=== PATIENT | male | born 1965 | race Caucasian/White ===

== ENCOUNTER 2021-01-28 14:13 | Inpatient (IN) | payer SELFPAY ==
[2021-01-28] VITALS (13 sets, daily range): BP systolic 113–137; BP diastolic 63–87; PULSE 76–96; RESP 16–20; TEMP 36.1–37.1; O2SAT 97–100; BMI 29.7
--- NOTE | ~2021-01-28 | XR_ITS ---
EXAMINATION: XR CHEST CLINICAL INFORMATION: Chest pain. COMPARISON: None TECHNIQUE: Frontal view of the chest was obtained. FINDINGS: No significant abnormality is noted involving the heart, lungs, mediastinum, bony thorax or soft tissues. XR/XR chest 1V IMPRESSION: No acute cardiopulmonary process.
--- NOTE | 2021-01-28 14:27 | ECG_ITS ---
Test Reason : CHEST PAIN Blood Pressure : / mmHG Vent. Rate : 094 BPM Atrial Rate : 094 BPM P-R Int : 174 ms QRS Dur : 084 ms QT Int : 358 ms P-R-T Axes : 051 055 -61 degrees QTc Int : 447 ms Normal sinus rhythm Minimal voltage criteria for LVH, may be normal variant T wave abnormality, consider inferolateral ischemia Abnormal ECG No previous ECGs available Referred By: Arcelia Humphrey Electronically Signed By:Migue Sahu
--- NOTE | 2021-01-28 14:38 | PC.NURSE ---
EKG obtained. Second IV inserted. Blood obtained and sent to lab per [facility] protocol. Awaigint CXR and MD mcgill. VSS at thist time. Pt placed on 2liters o2 NC for cmfort.
[2021-01-28 14:42] LABS: MANUAL DIFF FLAG NO
[2021-01-28 14:43] LABS: Basophils Percent Auto 0.4 % (0-2); Eosinophils Absolute Auto 0.5 X10*3/uL (0.0-0.4); Eosinophils Percent Auto 11.7 % (0-4); Imm Gran Abs Auto 0.01 X10*3/uL (0.00-0.03); Imm Gran Pct Auto 0.2 % (0.0-0.4); Lymphocytes Absolute Auto 1.8 X10*3/uL (1.2-4.9); Lymphocytes Percent Auto 40.4 % (20-40); Mean Corpuscular HGB Conc 26.8 g/dl (31.0-36.0); Mean Corpuscular Hemoglobin 17.3 pg (27.0-33.0); Mean Platelet Volume 9.7 fL (9.4-12.4); Monocytes Absolute Auto 0.4 X10*3/uL (0.1-1.2); Monocytes Percent Auto 8.1 % (2-11); Neutrophils Absolute Auto 1.7 X10*3/uL (2.0-8.3); Neutrophils Percent Auto 39.2 % (45-73); Platelet Count 262 X10*3/uL (160-400); Red Blood Count 3.07 X10*6/uL (4.60-5.80); Red Cell Distribution Width 19.9 % (11.0-16.0); White Blood Count 4.5 X10*3/uL (4.8-10.8)
[2021-01-28 15:03] LABS: Mean Corpuscular Volume 64.5 fL (80-98)
[2021-01-28 15:06] LABS: Hemoglobin 5.3 g/dl (14.0-18.0)
--- NOTE | 2021-01-28 15:06 | ED_ITS ---
HPI - Chest Pain General Chief Complaint: Chest Pain Stated Complaint: CHEST PAIN FOR 1 HOUR Time Seen by Provider: 01/28/21 15:04 History of Present Illness HPI narrative: Patient is a 55-year-old male with a history of having chest pain that is mid chest. Associated with shortness of breath. Worse with exertion. Improved with rest. Patient has a history of pneumonia. History of COVID. No history of blood clots. No history of diabetes, hypertension, smoking. No history of VA. No family history of VA. Patient from home. No coughing or congestion or upper respiratory symptoms. Patient worsen with exertion. Patient denies any leg swelling. No history of blood clot. No history of travel. Related Data Allergies Allergy/AdvReac Type Severity Reaction Status Date / Time No Known Allergies Allergy Unknown UNKNOWN Unverified 05/12/20 19:17 [NO KNOWN ALLERGIES] Review of Systems Review of Systems: Constitutional: No Weight loss, No Fever, No Chills, No Night Sweats, No Fatigue, No Malaise ENT/Mouth: No Hearing loss, No Ear Pain, No Nasal Congestion, No Sinus Pain, No Hoarseness, No sore throat, No Rhinorrhea, No Swallowing Difficulty Eyes: No Eye Pain, No Swelling, No Redness, No Foreign Body, No Discharge, No Vision Changes Cardiovascular: Positive Chest Pain, No SOB, No Dyspnea on Exertion, No Orthopnea, No Edema, No Palpitations Respiratory: No Cough, No Sputum, No Wheezing, No Smoke Exposure, No Dyspnea Gastrointestinal: No Nausea, No Vomiting, No Diarrhea, No Constipation, No abdominal Pain, No Hematochezia, No Melena Genitourinary: no irregular bleeding, No Dysuria, No Urinary Frequency, No He maturia, No Urinary Incontinence, No Urgency, No Flank Pain, No Urinary Flow Changes, No Hesitancy Musculoskeletal: No joint pain, No Myalgias, No Joint Swelling Skin: No Skin Lesions, No rash Neuro: No Weakness, No Numbness, No Paresthesias, No Loss of Consciousness, No Dizziness, No Headache Psych: No Anxiety/Panic, No Depression, No SI/HI/AH/VH, No Social Issues, Heme/Lymph: No Bruising, No Bleeding,No Lymphadenopathy Endocrine: No Polyuria, No Polydipsia, No Temperature Intolerance [facility] Past Medical History Attestation statement: The following information was validated with the patient. Social History Social History Advance Directives: No Advance Directives Information Provided: No Physical Exam Vital Signs: Vital Signs: Last Vital Signs Temp 97.5 F 01/28/21 14:20 Pulse 92 01/28/21 14:20 Resp 16 01/28/21 14:20 BP 134/72 01/28/21 14:20 Pulse Ox 97 01/28/21 14:20 Body Mass Index 29.7 Appearance: Alert. Oriented X3. No acute distress. Eyes: Pupils equal, round and reactive to light. ENT: Pharynx normal. Neck: Normal inspection. Neck supple. No lymph nodes noted. No crepitus CVS: Normal heart rate and rhythm. Pulses normal. Normal S1 and S2 Respiratory: No respiratory distress. Breath sounds normal. No Wheezing. No rales Abdomen: Soft and nontender. No rigidity. No distention. good BS x4 Skin: Skin warm and dry. Normal skin color. Normal skin turgor. Extremities: No lower extremity edema. Neurovascular intact to all extremities. No Lacerations. No Rash Neuro: Oriented X 3. No motor deficit. No sensory deficit. Moving all exter mities. No slurred speech MDM - Chest Pain MDM Narrative Medical decision making narrative: Positive chest pain tightness with exertion. Positive weakness. Will check patient's blood work. Patient has no risk factors for PE. Chest x-ray done no evidence for pneumonia. Patient's EKG showed a sinus pattern with significant T-wave inversions over the inferior and the lateral leads. There is no old EKG that could be found. Will monitor carefully will get labs. Patient's had chest pain shortness of breath with exertion. Trans that patient's hemoglobin is 5.3. Baseline is in the 9 range. A rectal exam was done. There was brown stool. It was sent for Hemoccult test. Risk and benefit of transfusion explained to patient. Patient's blood was typed and crossed. Will transfuse patient. Patient's cardiac enzyme was negative. Most likely patient has chest pain shortness of breath is related to anemia. Patient has a low MCV question iron deficiency but question from where. Case discussed with hospitalist team will admit for further evaluation. Differential Diagnosis Differential diagnosis: Likely fracture of rib, pneumothorax, unstable angina pectoris, atypical chest pain, st elevation myocardial infarction and costochondritis Medical Records Data Attestation: I reviewed the patient's medical records. Lab Data Attestation: I reviewed the patient's lab results. Result diagrams: 01/28/21 14:34 01/28/21 14:33 Labs: Lab Results 01/28/21 01/28/21 01/28/21 Range/Units 14:33 14:33 14:33 WBC (4.8-10.8) X10*3/uL RBC (4.60-5.80) X10*6/uL Hgb (14.0-18.0) g/dl Hct (42-52) % MCV (80-98) fL MCH (27.0-33.0) pg MCHC (31.0-36.0) g/dl RDW (11.0-16.0) % Plt Count (160-400) X10*3/uL MPV (9.4-12.4) fL Immature Gran % (Auto) (0.0-0.4) % Neut % (Auto) (45-73) % Lymph % (Auto) (20-40) % [place] % (Auto) (2-11) % Eos % (Auto) (0-4) % Baso % (Auto) (0-2) % Lymph # (Auto) (1.2-4.9) X10*3/uL [place] # (Auto) (0.1-1.2) X10*3/uL Eos # (Auto) (0.0-0.4) X10*3/uL Baso # (Auto) (0.0-0.2) X10*3/uL Abs Immat Gran (auto) (0.00-0.03) X10*3/uL Absolute Neuts (auto) (2.0-8.3) X10*3/uL Absolute Nucleated RBC (0.0-0.012) X10*3/uL Nucleated RBC % (auto) (0.0-0.2) /100WBC Hold Blue Top SEE NOTE Sodium 139 (135-145) mmol/L Potassium 4.0 (3.3-5.1) mmol/L Chloride 106 (96-108) mmol/L Carbon Dioxide 23 (22-29) mmol/L Anion Gap 14 (12-20) BUN 10 (9-16) mg/dL Creatinine 0.83 (0.5-1.4) mg/dL Estim Creat Clear Calc 103.1 Estimated GFR > 60 Random Glucose 147 H (60-115) mg/dL Calcium 8.8 (8.4-10.2) mg/dL Troponin I High Sens < 3.5 (<3.5-35.0) ng/L Crossmatch 01/28/21 01/28/21 Range/Units 14:34 15:42 WBC 4.5 L (4.8-10.8) X10*3/uL RBC 3.07 L (4.60-5.80) X10*6/uL Hgb 5.3 L* (14.0-18.0) g/dl Hct 19.8 L* (42-52) % MCV 64.5 L (80-98) fL MCH 17.3 L (27.0-33.0) pg MCHC 26.8 L (31.0-36.0) g/dl RDW 19.9 H (11.0-16.0) % Plt Count 262 (160-400) X10*3/uL MPV 9.7 (9.4-12.4) fL Immature Gran % (Auto) 0.2 (0.0-0.4) % Neut % (Auto) 39.2 L (45-73) % Lymph % (Auto) 40.4 H (20-40) % [place] % (Auto) 8.1 (2-11) % Eos % (Auto) 11.7 H (0-4) % Baso % (Auto) 0.4 (0-2) % Lymph # (Auto) 1.8 (1.2-4.9) X10*3/uL [place] # (Auto) 0.4 (0.1-1.2) X10*3/uL Eos # (Auto) 0.5 H (0.0-0.4) X10*3/uL Baso # (Auto) 0.0 (0.0-0.2) X10*3/uL Abs Immat Gran (auto) 0.01 (0.00-0.03) X10*3/uL Absolute Neuts (auto) 1.7 L (2.0-8.3) X10*3/uL Absolute Nucleated RBC 0.000 (0.0-0.012) X10*3/uL Nucleated RBC % (auto) 0.0 (0.0-0.2) /100WBC Hold Blue Top Sodium (135-145) mmol/L Potassium (3.3-5.1) mmol/L Chloride (96-108) mmol/L Carbon Dioxide (22-29) mmol/L Anion Gap (12-20) BUN (9-16) mg/dL Creatinine (0.5-1.4) mg/dL Estim Creat Clear Calc Estimated GFR Random Glucose (60-115) mg/dL Calcium (8.4-10.2) mg/dL Troponin I High Sens (<3.5-35.0) ng/L Crossmatch See Detail Critical Care Time Critical Care Time Total Critical Care Time: 40 Attestation: I have personally provided 40 minutes of critical care time exclusive of time spent on separately billable procedures. Time includes review of lab data, radiology results, discussion with consultants, and monitoring for potential decompensation. Interventions were performed as documented above Discharge Plan Discharge Clinical Impression: Chest pain, Anemia
[2021-01-28 15:07] LABS: Hematocrit 19.8 % (42-52)
[2021-01-28 15:09] LABS: Anion Gap 14 (12-20); Blood Urea Nitrogen 10 mg/dL (9-16); Calcium 8.8 mg/dL (8.4-10.2); Carbon Dioxide 23 mmol/L (22-29); Chloride 106 mmol/L (96-108); Creatinine Clr Calc Pharmacy 103.1; Estimated Glomerular Filt Rate > 60; Glucose Random 147 mg/dL (60-115); Sodium 139 mmol/L (135-145)
[2021-01-28 15:13] LABS: Troponin-I High Sensitivity < 3.5 ng/L (<3.5-35.0)
[2021-01-28 15:55] LABS: OBS Int Ctl Valid YES; OBS1 NEGATIVE (NEGATIVE)
[2021-01-28 16:04] LABS: COVID-19 Test Negative (Negative)
--- NOTE | 2021-01-28 17:16 | P.HPHOSP_ITS ---
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 He presents to the emergency department now with a one-week history of nonradiating midsternal chest pressure that is dull in quality and worse with exertion. He also notes about 2 weeks of worsening dyspnea with exertion. He has also been feeling dizzy and lightheaded for approximately the past 4 weeks. He is on no chronic medications. In the ED, he was noted to be severely anemic with a hemoglobin of 5.3 and MCV of 65. FOBT was negative. He's never been told before that he is anemic; however I do note that his hemoglobin was 10.8 back in 2018 with MCV of 69; and then 9.5 back in 2019 with MCV of 68. He is not a vegetarian and he eats plenty of meat and beans and other iron rich foods. He denies any melena or hematochezia but has not had age-appropriate colon cancer screening. He does not currently have a primary care physician. History taken in Italian from the patient. Review of Systems Review of Systems: Yes all other systems are reviewed and are negative PMFSH Pertinent family history: no FHx of CAD or CVA Social History (Updated 01/28/21 @ 17:21 by Benton Barr MD) Substance Use Type Other:: no tobacco; light EtOH drinker; no other substances Advance Directives: No Advance Directives Information Provided: No Meds Allergies Allergy/AdvReac Type Severity Reaction Status Date / Time No Known Allergies Allergy Unknown UNKNOWN Unverified 05/12/20 19:17 [NO KNOWN ALLERGIES] Active Medications: Current Medications Generic Name Dose Route Start Last Admin Trade Name Freq PRN Reason Stop Dose Admin Acetaminophen 650 mg 01/28/21 17:13 Acetaminophen 325 Mg Tablet PO Q6H PRN Pain, Mild (Pain Scale 1-3) Ondansetron HCl 4 mg 01/28/21 17:13 Ondansetron Hcl 4 Mg/2 Ml Vial IVPUSH Q8H PRN Nausea and Vomiting Sodium Chloride 3 ml 01/29/21 00:00 0.9 % Sodium Chloride Flush 3 Ml Syringe IVFLUSH QSHIFT [facility] Physical Exam Vital Signs and Narrative: Vital Signs: Last Vital Signs Temp 97.5 F 01/28/21 14:20 Pulse 92 01/28/21 14:20 Resp 16 01/28/21 14:20 BP 134/72 01/28/21 14:20 Pulse Ox 97 01/28/21 14:20 Body Mass Index 29.7 Gen: in no acute distress HEENT: very pale conjunctivae and oral mucosa, moist mucus membranes Neck: supple, no goiter or LAD Lungs: clear to auscultation bilaterally Heart: regular rate and rhythm, no murmurs, no chest wall tenderness Abd: soft, non-tender, non-distended Ext: no edema Skin: warm/well-perfused Neuro: alert and oriented x3, no focal findings Psych: appropriate affect Results Labs CBC and Chem 7: 01/28/21 14:34 01/28/21 14:33 Labs: Laboratory Results - last 24 hr 01/28/21 01/28/21 01/28/21 14:33 14:33 14:33 MCV MCH MCHC RDW Plt Count MPV Immature Gran % (Auto) Neut % (Auto) Lymph % (Auto) [place] % (Auto) Eos % (Auto) Baso % (Auto) Lymph # (Auto) [place] # (Auto) Eos # (Auto) Baso # (Auto) Abs Immat Gran (auto) Absolute Neuts (auto) Absolute Nucleated RBC Nucleated RBC % (auto) Hold Blue Top SEE NOTE Anion Gap 14 Estim Creat Clear Calc 103.1 Estimated GFR > 60 Random Glucose 147 H Calcium 8.8 Troponin I High Sens < 3.5 Stool Occult Blood COVID-19 ([facility]) COVID-19 Clin Com Blood Type Antibody Screen Crossmatch 01/28/21 01/28/21 01/28/21 14:34 15:42 15:42 MCV 64.5 L MCH 17.3 L MCHC 26.8 L RDW 19.9 H Plt Count 262 MPV 9.7 Immature Gran % (Auto) 0.2 Neut % (Auto) 39.2 L Lymph % (Auto) 40.4 H [place] % (Auto) 8.1 Eos % (Auto) 11.7 H Baso % (Auto) 0.4 Lymph # (Auto) 1.8 [place] # (Auto) 0.4 Eos # (Auto) 0.5 H Baso # (Auto) 0.0 Abs Immat Gran (auto) 0.01 Absolute Neuts (auto) 1.7 L Absolute Nucleated RBC 0.000 Nucleated RBC % (auto) 0.0 Hold Blue Top Anion Gap Estim Creat Clear Calc Estimated GFR Random Glucose Calcium Troponin I High Sens Stool Occult Blood COVID-19 ([facility]) Negative COVID-19 Clin Com See Note Blood Type O Positive Antibody Screen NEGATIVE Crossmatch See Detail 01/28/21 15:42 MCV MCH MCHC RDW Plt Count MPV Immature Gran % (Auto) Neut % (Auto) Lymph % (Auto) [place] % (Auto) Eos % (Auto) Baso % (Auto) Lymph # (Auto) [place] # (Auto) Eos # (Auto) Baso # (Auto) Abs Immat Gran (auto) Absolute Neuts (auto) Absolute Nucleated RBC Nucleated RBC % (auto) Hold Blue Top Anion Gap Estim Creat Clear Calc Estimated GFR Random Glucose Calcium Troponin I High Sens Stool Occult Blood NEGATIVE COVID-19 ([facility]) COVID-19 Clin Com Blood Type Antibody Screen Crossmatch Imaging Radiologist's Impressions: Impressions Chest X-Ray 01/28/21 14:27 IMPRESSION: No acute cardiopulmonary process. Assessment and Plan (1) Chest pain: Status: Acute (2) Anemia: Status: Acute This is a 55 year-old male with no chronic conditions, prior pSBO and COVID-19 pneumonia, who presents with chest pressure, shoulder dyspnea, and li ghtheadedness all attributable to severe microcytic anemia # severe microcytic anemia - Will admit to M/S and transfuse 3 units of pRBCs. Almost certainly iron deficiency and will discharge on repletion. Will check iron studies; also LDH and reticulocyte count. Mentzner index is 21 arguing against thalassemia. - Initial FOBT negative; however suspicion remains and will guaiac all stools and consult Gastroenterology and he is due for age-appropriate colon cancer screening anyhow # chest pain - likely due to the anemia; however will repeat a 3 hour high sensitive troponin to rule out ACS # VTE ppx - SCDs # dispo - will need a PCP # code - FULL
[2021-01-28 17:45] LABS: Iron 15 mcg/dL (45-160); Lactate Dehydrogenase 133 U/L (118-273); Percent Iron Saturation 3 % (15-50); Total Iron Binding Capacity 513 mcg/dL (228-428); Unsaturated Iron Binding 498 ug/dL
[2021-01-28 17:55] LABS: Immature Retic Fraction 20.8 % (2.3-13.4); Retic HGB Equivalent 14.4 pg (30.0-35.0); Reticulocyte Percent 2.6 % (0.5-1.8); Reticulocytes Absolute 0.083 X10*6/uL (0.026-0.095)
[2021-01-28 18:09] LABS: Ferritin < 1 ng/mL (20-250)
--- NOTE | 2021-01-28 18:15 | PC.NURSE ---
VSS. Blood transfusion started. Consent was obtaine prior by with the presence of an manager hvac.
[2021-01-28 18:28] LABS: Troponin-I High Sensitivity < 3.5 ng/L (<3.5-35.0)
--- NOTE | 2021-01-28 18:38 | PM.EVENT ---
Event Note Date of Service: 01/28/21 Event Note: GI--Consult received and I will see patient on Saturday, 01/29. However, his chart has been reviewed. He will need EGD/Colonoscopy and I will plan that for 01/30. Therefore, will keep him on clear liquids for now and I will order the bowel prep after I see him on 01/29. Thanks
[2021-01-28] MEDS: 0.9 % Sodium Chloride Flush 3 ML SYRINGE IVFLUSH (23:47)
[2021-01-29] VITALS (7 sets, daily range): BP systolic 107–135; BP diastolic 59–88; PULSE 73–81; RESP 16–18; TEMP 36.2–37; O2SAT 98–100
[2021-01-29 08:55] LABS: MANUAL DIFF FLAG NO
[2021-01-29 08:58] LABS: Basophils Percent Auto 0.7 % (0-2); Eosinophils Absolute Auto 0.8 X10*3/uL (0.0-0.4); Eosinophils Percent Auto 12.6 % (0-4); Hematocrit 28.6 % (42-52); Hemoglobin 8.5 g/dl (14.0-18.0); Imm Gran Abs Auto 0.02 X10*3/uL (0.00-0.03); Imm Gran Pct Auto 0.3 % (0.0-0.4); Lymphocytes Absolute Auto 2.2 X10*3/uL (1.2-4.9); Lymphocytes Percent Auto 37.3 % (20-40); Mean Corpuscular HGB Conc 29.7 g/dl (31.0-36.0); Mean Corpuscular Hemoglobin 21.6 pg (27.0-33.0); Mean Corpuscular Volume 72.6 fL (80-98); Mean Platelet Volume 9.8 fL (9.4-12.4); Monocytes Absolute Auto 0.4 X10*3/uL (0.1-1.2); Monocytes Percent Auto 5.9 % (2-11); NRBC Pct Auto 0.3 /100WBC (0.0-0.2); Neutrophils Absolute Auto 2.6 X10*3/uL (2.0-8.3); Neutrophils Percent Auto 43.2 % (45-73); Platelet Count 242 X10*3/uL (160-400); Red Blood Count 3.94 X10*6/uL (4.60-5.80); Red Cell Distribution Width 25.2 % (11.0-16.0); White Blood Count 5.9 X10*3/uL (4.8-10.8)
[2021-01-29 09:17] LABS: Anion Gap 14 (12-20); Blood Urea Nitrogen 8 mg/dL (9-16); Calcium 8.3 mg/dL (8.4-10.2); Carbon Dioxide 21 mmol/L (22-29); Chloride 108 mmol/L (96-108); Creatinine Clr Calc Pharmacy 105.7; Estimated Glomerular Filt Rate > 60; Glucose Random 168 mg/dL (60-115); Sodium 139 mmol/L (135-145)
[2021-01-29] MEDS: 0.9 % Sodium Chloride Flush 3 ML SYRINGE IVFLUSH ×3 (09:28→22:01)
--- NOTE | 2021-01-29 12:09 | P.PNIM_ITS ---
Subjective Subjective Date of Service: 01/29/21 Interval History: History taken in [place] from the patient, who feels much better; chest pain, dyspnea, and lightheadedness have resolved. No gross GI bleeding. Physical Exam Vital Signs: Vital Signs: Last Vital Signs Temp 97.4 F 01/29/21 11:30 Pulse 78 01/29/21 11:30 Resp 16 01/29/21 11:30 BP 135/69 01/29/21 11:30 Pulse Ox 99 01/29/21 11:30 Body Mass Index 29.7 Gen: in no acute distress HEENT: pale mucosa Neck: supple Lungs: clear to auscultation bilaterally Heart: regular rate and rhythm, no murmurs Abd: soft, non-tender, non-distended Ext: no edema Skin: warm/well-perfused Neuro: alert and oriented x3, no focal findings Psych: appropriate affect Objective Data Current Medications Generic Name Dose Route Start Last Admin Trade Name Freq PRN Reason Stop Dose Admin Acetaminophen 650 mg 01/28/21 17:13 Acetaminophen 325 Mg Tablet PO Q6H PRN Pain, Mild (Pain Scale 1-3) Ondansetron HCl 4 mg 01/28/21 17:13 Ondansetron Hcl 4 Mg/2 Ml Vial IVPUSH Q8H PRN Nausea and Vomiting Sodium Chloride 3 ml 01/29/21 00:00 01/29/21 09:28 0.9 % Sodium Chloride Flush 3 Ml Syringe IVFLUSH 3 ml QSHIFT MAXIM Administration Labs CBC & Chem 7: 01/29/21 08:37 01/29/21 08:37 Labs: Laboratory Results - last 24 hr 01/28/21 01/28/21 01/28/21 14:33 14:33 14:33 WBC RBC Hgb Hct MCV MCH MCHC RDW Plt Count MPV Immature Gran % (Auto) Neut % (Auto) Lymph % (Auto) [place] % (Auto) Eos % (Auto) Baso % (Auto) Lymph # (Auto) [place] # (Auto) Eos # (Auto) Baso # (Auto) Abs Immat Gran (auto) Absolute Neuts (auto) Absolute Nucleated RBC Nucleated RBC % (auto) Absolute Retic Percent Retic Immature Retic Fraction Retic Hgb Equivalent Hold Blue Top SEE NOTE Sodium 139 Potassium 4.0 Chloride 106 Carbon Dioxide 23 Anion Gap 14 BUN 10 Creatinine 0.83 Estim Creat Clear Calc 103.1 Estimated GFR > 60 Random Glucose 147 H Calcium 8.8 Iron 15 L TIBC 513 H % Saturation 3 L Unsat Iron Binding 498 Ferritin < 1 L Lactate Dehydrogenase 133 Troponin I High Sens < 3.5 Stool Occult Blood COVID-19 ([facility]) COVID-19 Clin Com Blood Type Antibody Screen Crossmatch 01/28/21 01/28/21 01/28/21 14:34 15:42 15:42 WBC 4.5 L RBC 3.07 L Hgb 5.3 L* Hct 19.8 L* MCV 64.5 L MCH 17.3 L MCHC 26.8 L RDW 19.9 H Plt Count 262 MPV 9.7 Immature Gran % (Auto) 0.2 Neut % (Auto) 39.2 L Lymph % (Auto) 40.4 H [place] % (Auto) 8.1 Eos % (Auto) 11.7 H Baso % (Auto) 0.4 Lymph # (Auto) 1.8 [place] # (Auto) 0.4 Eos # (Auto) 0.5 H Baso # (Auto) 0.0 Abs Immat Gran (auto) 0.01 Absolute Neuts (auto) 1.7 L Absolute Nucleated RBC 0.000 Nucleated RBC % (auto) 0.0 Absolute Retic Cancelled Percent Retic Cancelled Immature Retic Fraction Cancelled Retic Hgb Equivalent Cancelled Hold Blue Top Sodium Potassium Chloride Carbon Dioxide Anion Gap BUN Creatinine Estim Creat Clear Calc Estimated GFR Random Glucose Calcium Iron TIBC % Saturation Unsat Iron Binding Ferritin Lactate Dehydrogenase Troponin I High Sens Stool Occult Blood COVID-19 ([facility]) Negative COVID-19 Clin Com See Note Blood Type O Positive Antibody Screen NEGATIVE Crossmatch See Detail 01/28/21 01/28/21 01/28/21 15:42 17:32 17:32 WBC RBC Hgb Hct MCV MCH MCHC RDW Plt Count MPV Immature Gran % (Auto) Neut % (Auto) Lymph % (Auto) [place] % (Auto) Eos % (Auto) Baso % (Auto) Lymph # (Auto) [place] # (Auto) Eos # (Auto) Baso # (Auto) Abs Immat Gran (auto) Absolute Neuts (auto) Absolute Nucleated RBC Nucleated RBC % (auto) Absolute Retic 0.083 Percent Retic 2.6 H Immature Retic Fraction 20.8 H Retic Hgb Equivalent 14.4 L Hold Blue Top Sodium Potassium Chloride Carbon Dioxide Anion Gap BUN Creatinine Estim Creat Clear Calc Estimated GFR Random Glucose Calcium Iron TIBC % Saturation Unsat Iron Binding Ferritin Lactate Dehydrogenase Troponin I High Sens < 3.5 Stool Occult Blood NEGATIVE COVID-19 ([facility]) COVID-19 [facility] Blood Type Antibody Screen Crossmatch 01/29/21 01/29/21 08:37 08:37 WBC 5.9 RBC 3.94 L D Hgb 8.5 L D Hct 28.6 L D MCV 72.6 L D MCH 21.6 L MCHC 29.7 L RDW 25.2 H Plt Count 242 MPV 9.8 Immature Gran % (Auto) 0.3 Neut % (Auto) 43.2 L Lymph % (Auto) 37.3 [place] % (Auto) 5.9 Eos % (Auto) 12.6 H Baso % (Auto) 0.7 Lymph # (Auto) 2.2 [place] # (Auto) 0.4 Eos # (Auto) 0.8 H Baso # (Auto) 0.0 Abs Immat Gran (auto) 0.02 Absolute Neuts (auto) 2.6 Absolute Nucleated RBC 0.020 H Nucleated RBC % (auto) 0.3 H Absolute Retic Percent Retic Immature Retic Fraction Retic Hgb Equivalent Hold Blue Top Sodium 139 Potassium 4.0 Chloride 108 Carbon Dioxide 21 L Anion Gap 14 BUN 8 L Creatinine 0.81 Estim Creat Clear Calc 105.7 Estimated GFR > 60 Random Glucose 168 H Calcium 8.3 L Iron TIBC % Saturation Unsat Iron Binding Ferritin Lactate Dehydrogenase Troponin I High Sens Stool Occult Blood COVID-19 ([facility]) COVID-19 [facility] Com Blood Type Antibody Screen Crossmatch Assessment and Plan (1) Anemia: Status: Acute Assessment and Plan: hospital d#2 55 year-old M with no chronic conditions [prior admissions for pSBO and COVID-19 pneumonia] p/w chest pressure, exertional dyspnea, and lightheadendess admitted for severe iron deficiency anemia with Hb 5.3 # severe KARINA - Hb responded appropriately to 3u pRBCs. Initial FOBT negative; however, high suspicion of GI loss and as such GI will perform EGD + C-scope tomorrow; clear liquids today, bowel prep tonight, NPO past midnight - celiac serology pending, H pylori stool Ag ordered - start oral Fe replacement upon discharge # chest pain - attributable to the anemia; hs-Tn-I x2 negative # VTE ppx - SCDs # dispo - will need a PCP
[2021-01-29 13:45] LABS: Estimated Average Glucose 117 mg/dL; Hemoglobin A1c % 5.7 %
--- NOTE | 2021-01-29 15:23 | MHC.CM.PN ---
KELLY HAS ATTEMPTED TO VISIT PT TWICE THROUGHOUT THE DAY. PT WITH OTHER STAFF/MD. KELLY TO REVISIT
--- NOTE | 2021-01-29 15:26 | MHC.SHP ---
Pre-Procedural Eval Section A The patient is an INPATIENT: Yes The History & Physical has been completed within 30 days and I have reviewed it.: Yes Section B Chief Complaint: severe anemia Allergies: Allergies Allergy/AdvReac Type Severity Reaction Status Date / Time No Known Allergies Allergy Unknown UNKNOWN Verified 01/28/21 20:28 [NO KNOWN ALLERGIES] Plan I have reviewed the history and physical and performed a pertinent physical examination on my patient. No changes have occurred unless specified.
--- NOTE | 2021-01-29 15:40 | P.EN_ITS ---
Event Note Date of Service: 01/29/21 Event Note: GI Consult-Full note dictated-Hx via patient and with medical technologist generalist, and the EMR Imp: Healthy 55 yo male with significant anemia, intermittent diarrhea, occasional abdominal cramps, and occasional hematochezia x 2-3 months, but otherwise feeling well aside from progressive fatigue. He denies abdominal pain nor any UGI sx. He has not seen a doctor for this and has never had any GI procedures. His abdominal exam is benign. He denies NSAIDs, tobacco, nor EtOH. Diff dx: IBD, GI neoplasm. Rec: EGD and Colonoscopy with MAC on 01/30. Full consent obtained for this, including risks of bleeding and perforation. F/U labs in AM. D/W patient and in detail. They are comfortable with this plan.
[2021-01-29] MEDS: PEG 3350/Na Sulf,Bicarb,Cl/KCL 4,000 ML SOLN.RECON 4000 ML PO (17:25)
[2021-01-29] MEDS: bisacodyL 5 MG TABLET.DR 10 MG PO (18:06)
[2021-01-30] VITALS (8 sets, daily range): BP systolic 83–143; BP diastolic 45–80; PULSE 66–82; RESP 16–18; TEMP 36.1–37.1; O2SAT 8–99
[2021-01-30 07:52] LABS: Hematocrit 29.1 % (42-52); Hemoglobin 8.6 g/dl (14.0-18.0); Mean Corpuscular HGB Conc 29.6 g/dl (31.0-36.0); Mean Corpuscular Hemoglobin 21.3 pg (27.0-33.0); Red Blood Count 4.04 X10*6/uL (4.60-5.80)
[2021-01-30 07:53] LABS: NRBC Pct Auto 0.3 /100WBC (0.0-0.2); Platelet Count 262 X10*3/uL (160-400); Red Cell Distribution Width 25.5 % (11.0-16.0); White Blood Count 7.1 X10*3/uL (4.8-10.8)
[2021-01-30 07:57] LABS: INTERNATIONAL NORM RATIO 1.2 (0.9-1.1); Prothrombin Time 14.1 SEC (10.8-13.0)
[2021-01-30 08:17] LABS: PLT ABN DIST 1
[2021-01-30 08:35] LABS: Alanine Aminotransferase 35 U/L (0-40); Albumin Level 4.1 g/dL (3.5-5.0); Alkaline Phosphatase 74 U/L (39-117); Anion Gap 13 (12-20); Aspartate Amino Transferase 30 U/L (5-37); Bilirubin Direct 0.2 mg/dL (0.0-0.5); Bilirubin Total 0.8 mg/dL (0.0-1.0); Blood Urea Nitrogen 10 mg/dL (9-16); Calcium 8.7 mg/dL (8.4-10.2); Carbon Dioxide 24 mmol/L (22-29); Chloride 107 mmol/L (96-108); Creatinine Clr Calc Pharmacy 109.7; Estimated Glomerular Filt Rate > 60; Glucose Fasting 85 mg/dL (60-99); Potassium 4.1 mmol/L (3.3-5.1); Sodium 140 mmol/L (135-145); Total Protein 6.8 g/dL (6.5-8.0)
--- NOTE | 2021-01-30 09:20 | MHC.CM.PN ---
PATIENT LIVES WITH HIS AND CHILDREN. HE IS FULLY INDEPENDENT WITH ALL ADLS. NO DME OR VNA SERVICES. HE IS EXPECTING TO RETURN HOME TODAY WITH NO SERVICES. TO TRANSPORT. FACE SHEET FAXED TO [facility] [place] [employer], ALTHOUGH PATIENT DOES STATE HE HAS [employer] BUT DOES NOT HAVE HIS CARD WITH HIM. CASE MANAGEMENT FOLLOWING FOR ANY DC NEEDS.
[2021-01-30 09:21] LABS: Folate 17.3 ng/mL (> or = 4.0); Vitamin B12 432 pg/mL (200-900)
--- NOTE | 2021-01-30 11:23 | MHC.CM.PN ---
PER [facility] [facility] [facility], PATIENT DID HAVE [employer] LIMITED IN 2017, AND IS NOW SHOWING [employer]. FINANCE DEPT TO ASSIST WITH ATTEMPTS TO SECURE INSURANCE COVERAGE.
--- NOTE | 2021-01-30 11:28 | CONS_ITS ---
DATE OF SERVICE: 01/29/2021 REASON FOR CONSULTATION: Anemia, occasional diarrhea, and occasional hematochezia. HISTORY OF PRESENT ILLNESS: This has been obtained from the patient and his with a medical physicist, and from the medical record. The patient is a 55-year-old, otherwise healthy male, who is on no medication and does not seek any regular medical care, who had been feeling well up until the past few weeks when he has had progressive fatigue. He has also noted some dyspnea. He does describe some occasional episodes of diarrhea, abdominal cramps, and small amounts of bright red blood mixed with his diarrhea. However, this does not occur regularly nor daily. He has not noticed any melena. In general, he has been enjoying a good appetite and denies any significant heartburn, dysphagia, nausea, nor vomiting. He denies any jaundice nor other abdominal pains. He denies any weight loss. Due to his progressive weakness, he was seen in the ER and found to be quite anemic and admitted for further evaluation. Since admission here, he has had no signs of bleeding. He has been tolerating a liquid diet. He feels much better after his transfusions. He denies having seen a GI specialist or primary care doctor, and denies any previous history of GI procedures such as colonoscopy. He denies use of any chronic NSAIDs, tobacco, nor alcohol. He denies any known family history of colorectal cancer nor inflammatory bowel disease. HOME MEDICATIONS: None. PAST MEDICAL HISTORY: He denies any surgeries. He denies any history of heart disease, diabetes, stroke, lung disease, or kidney disease. SOCIAL HISTORY: He works installing floors. He is . As above. FAMILY HISTORY: Noncontributory. REVIEW OF SYSTEMS: CONSTITUTIONAL: Other than feeling weak, he has been feeling well with good appetite. SKIN: No rash. No pruritus. CARDIAC: No chest pain. PULMONARY: He has had some dyspnea lately in relation to the anemia, but no coughing or hemoptysis. GASTROINTESTINAL: As above. URINARY: No dysuria. No hematuria. NEUROLOGIC: No headache or seizures. PHYSICAL EXAMINATION: GENERAL: The patient is a pleasant, alert, comfortable-appearing male, in no distress. SKIN: Warm and dry. Anicteric sclerae. NECK: Supple. CHEST: Clear. CARDIAC: Normal S1 and S2. ABDOMEN: Soft, nondistended, nontender without mass. EXTREMITIES: Without edema. LABORATORY DATA: Initial hemoglobin was 5.3 with MCV of 65. Of note, he did have a hemoglobin of 9.5 with MCV of 68 in August of 2018. His hemoglobin was 10.8 in 2018. White blood cell count 4.5, platelets 262,000. Normal chemistries. BUN 8, creatinine 0.8, iron 15 with iron saturation 3% and ferritin less than 11. His stool was Hemoccult negative. His chest x-ray was negative. IMPRESSION: Given the patient's clinical history, there is no definitive etiology of his significant anemia at this time, other than the possibility of some inflammatory bowel disease given what he describes as some intermittent diarrhea and hematochezia. Given his age, clinical history, and never having had any GI workup, I would recommend both upper endoscopy and colonoscopy for evaluation to rule out anything such as inflammatory bowel disease, GI neoplasm, silent ulcer disease, gastritis, or angiodysplasia. He can also have duodenal biopsies to rule out celiac disease. Full consent has been obtained from him for both procedures, including risks of bleeding and perforation. The procedures will be done with monitored anesthesia care. In the meantime, he will continue to be monitored closely with followup laboratories in the morning including a PT with INR and liver profile. This has all been discussed with the patient and his in detail with the packerhead machine operator, and they are comfortable with this plan. Thank you for this consultation. MD DAVID Skaggs/KIRSTIE / [id number] ELSA
--- NOTE | 2021-01-30 13:53 | MHC.CM.PN ---
[facility] [place] FINANCIAL DEPT IS AWAITING 202 TAX RETURNS TO BE FAXED FROM PATIENT'S MORTGAGE LOAN ASSISTANT SO THAT [place] APPLICATION CAN BE UPDATED. POSSIBLE ELIGIBILITY FOR [facility] CARE [facility], AND IF SO, WILL NOT BE ELIGIBLE UNTIL FEBRUARY 23, 2021. PATIENT AWARE. [facility] [place] FINANCIAL COUNSELOR WILL UPDATE
--- NOTE | 2021-01-30 14:31 | P.CONAN_ITS ---
[facility] Active Problems Active Problems: All Active Problems (Updated 01/28/21 @ 15:42 by Arcelia Humphrey MD) Chest pain (Acute) Anemia (Acute) Social History Social History (Updated 01/28/21 @ 17:21 by Benton Barr MD) Household Members: Spouse Housing: House Do you presently have visiting nurse or other home services: No e-Cigarette/Vaping Use: Never Used Use of substances other than those prescribed or required for medical reasons: No Substance Use Type Other:: no tobacco; light EtOH drinker; no other substances Currently Displaying Signs/Symptoms of Drug Intoxication Withdrawal: No Have you been hit, kicked, punched, or otherwise hurt by someone within the past year? If so, by whom?: No Do you feel safe in your current relationship?: Yes Is there a partner from a previous relationship who is making you feel unsafe now?: No Are you made to feel afraid or neglected: No Advance Directives: No Advance Directives Information Provided: No Do you have thoughts of harming others: None Do you have a plan to hurt others: No Plan Recently lost weight without trying: No Nutrition Risks: No Nutritional Risk Poor oral hygiene: No service: No Current occupational status: unemployed Meds Allergies Allergy/AdvReac Type Severity Reaction Status Date / Time No Known Allergies Allergy Unknown UNKNOWN Verified 01/28/21 20:28 [NO KNOWN ALLERGIES] Active Medications: Current Medications Generic Name Dose Route Start Last Admin Trade Name Freq PRN Reason Stop Dose Admin Acetaminophen 650 mg 01/28/21 17:13 Acetaminophen 325 Mg Tablet PO Q6H PRN Pain, Mild (Pain Scale 1-3) Ondansetron HCl 4 mg 01/28/21 17:13 Ondansetron Hcl 4 Mg/2 Ml Vial IVPUSH Q8H PRN Nausea and Vomiting Sodium Chloride 3 ml 01/29/21 00:00 01/29/21 22:01 0.9 % Sodium Chloride Flush 3 Ml [facility] Home Medications Medication Instructions Recorded Confirmed Last Taken Type No Known Home Meds 01/28/21 01/28/21 Unknown History Exam Exam Date and Time: January 30, 2021 1431 Height,Weight and Vital Signs: Height 5 ft 6 in Weight 83.5 kg Last Vital Signs Temp 98.8 F 01/30/21 14:23 Pulse 81 06/07/21 14:23 Resp 18 01/30/21 14:23 BP 130/80 01/30/21 14:23 Pulse Ox 98 01/30/21 14:23 Pertinent Lab Results Pertinent Lab Results: Laboratory Tests 01/28/21 01/28/21 01/28/21 14:33 14:33 14:33 WBC RBC Hgb Hct MCV MCH MCHC RDW Plt Count MPV Immature Gran % (Auto) Neut % (Auto) Lymph % (Auto) [place] % (Auto) Eos % (Auto) Baso % (Auto) Lymph # (Auto) [place] # (Auto) Eos # (Auto) Baso # (Auto) Abs Immat Gran (auto) Absolute Neuts (auto) Absolute Nucleated RBC Nucleated RBC % (auto) Smear Path Review Absolute Retic Percent Retic Immature Retic Fraction Retic Hgb Equivalent PT INR Hold Blue Top SEE NOTE Sodium 139 Potassium 4.0 Chloride 106 Carbon Dioxide 23 Anion Gap 14 BUN 10 Creatinine 0.83 Estim Creat Clear Calc 103.1 Estimated GFR > 60 Random Glucose 147 H Fasting Glucose Estimat Average Glucose Hemoglobin A1c % Calcium 8.8 Iron 15 L TIBC 513 H % Saturation 3 L Unsat Iron Binding 498 Ferritin < 1 L Total Bilirubin Direct Bilirubin AST ALT Alkaline Phosphatase Lactate Dehydrogenase 133 Troponin I High Sens < 3.5 Total Protein Albumin Vitamin B12 Folate Stool Occult Blood COVID-19 ([facility]) COVID-19 Clin Com Blood Type Antibody Screen Crossmatch 01/28/21 01/28/21 01/28/21 14:34 15:42 15:42 WBC 4.5 L RBC 3.07 L Hgb 5.3 L* Hct 19.8 L* MCV 64.5 L MCH 17.3 L MCHC 26.8 L RDW 19.9 H Plt Count 262 MPV 9.7 Immature Gran % (Auto) 0.2 Neut % (Auto) 39.2 L Lymph % (Auto) 40.4 H [place] % (Auto) 8.1 Eos % (Auto) 11.7 H Baso % (Auto) 0.4 Lymph # (Auto) 1.8 [place] # (Auto) 0.4 Eos # (Auto) 0.5 H Baso # (Auto) 0.0 Abs Immat Gran (auto) 0.01 Absolute Neuts (auto) 1.7 L Absolute Nucleated RBC 0.000 Nucleated RBC % (auto) 0.0 Smear Path Review SEE NOTE Absolute Retic Cancelled Percent Retic Cancelled Immature Retic Fraction Cancelled Retic Hgb Equivalent Cancelled PT INR Hold Blue Top Sodium Potassium Chloride Carbon Dioxide Anion Gap BUN Creatinine Estim Creat Clear Calc Estimated GFR Random Glucose Fasting Glucose Estimat Average Glucose Hemoglobin A1c % Calcium Iron TIBC % Saturation Unsat Iron Binding Ferritin Total Bilirubin Direct Bilirubin AST ALT Alkaline Phosphatase Lactate Dehydrogenase Troponin I High Sens Total Protein Albumin Vitamin B12 Folate Stool Occult Blood COVID-19 ([facility]) Negative COVID-19 Clin Com See Note Blood Type O Positive Antibody Screen NEGATIVE Crossmatch See Detail 01/28/21 01/28/21 01/28/21 15:42 17:32 17:32 WBC RBC Hgb Hct MCV MCH MCHC RDW Plt Count MPV Immature Gran % (Auto) Neut % (Auto) Lymph % (Auto) [place] % (Auto) Eos % (Auto) Baso % (Auto) Lymph # (Auto) [place] # (Auto) Eos # (Auto) Baso # (Auto) Abs Immat Gran (auto) Absolute Neuts (auto) Absolute Nucleated RBC Nucleated RBC % (auto) Smear Path Review Absolute Retic 0.083 Percent Retic 2.6 H Immature Retic Fraction 20.8 H Retic Hgb Equivalent 14.4 L PT INR Hold Blue Top Sodium Potassium Chloride Carbon Dioxide Anion Gap BUN Creatinine Estim Creat Clear Calc Estimated GFR Random Glucose Fasting Glucose Estimat Average Glucose Hemoglobin A1c % Calcium Iron TIBC % Saturation Unsat Iron Binding Ferritin Total Bilirubin Direct Bilirubin AST ALT Alkaline Phosphatase Lactate Dehydrogenase Troponin I High Sens < 3.5 Total Protein Albumin Vitamin B12 Folate Stool Occult Blood NEGATIVE COVID-19 ([facility]) COVID-19 Clin Com Blood Type Antibody Screen Crossmatch 01/29/21 01/29/21 01/29/21 08:37 08:37 08:37 WBC 5.9 RBC 3.94 L D Hgb 8.5 L D Hct 28.6 L D MCV 72.6 L D MCH 21.6 L MCHC 29.7 L RDW 25.2 H Plt Count 242 MPV 9.8 Immature Gran % (Auto) 0.3 Neut % (Auto) 43.2 L Lymph % (Auto) 37.3 [place] % (Auto) 5.9 Eos % (Auto) 12.6 H Baso % (Auto) 0.7 Lymph # (Auto) 2.2 [place] # (Auto) 0.4 Eos # (Auto) 0.8 H Baso # (Auto) 0.0 Abs Immat Gran (auto) 0.02 Absolute Neuts (auto) 2.6 Absolute Nucleated RBC 0.020 H Nucleated RBC % (auto) 0.3 H Smear Path Review Absolute Retic Percent Retic Immature Retic Fraction Retic Hgb Equivalent PT INR Hold Blue Top Sodium 139 Potassium 4.0 Chloride 108 Carbon Dioxide 21 L Anion Gap 14 BUN 8 L Creatinine 0.81 Estim Creat Clear Calc 105.7 Estimated GFR > 60 Random Glucose 168 H Fasting Glucose Estimat Average Glucose 117 Hemoglobin A1c % 5.7 Calcium 8.3 L Iron TIBC % Saturation Unsat Iron Binding Ferritin Total Bilirubin Direct Bilirubin AST ALT Alkaline Phosphatase Lactate Dehydrogenase Troponin I High Sens Total Protein Albumin Vitamin B12 Folate Stool Occult Blood COVID-19 ([facility]) COVID-19 [facility] Blood Type Antibody Screen Crossmatch 01/30/21 01/30/21 01/30/21 07:24 07:24 07:24 WBC 7.1 RBC 4.04 L Hgb 8.6 L Hct 29.1 L MCV 72.0 L MCH 21.3 L MCHC 29.6 L RDW 25.5 H Plt Count 262 MPV Not Reportable Immature Gran % (Auto) Neut % (Auto) Lymph % (Auto) [place] % (Auto) Eos % (Auto) Baso % (Auto) Lymph # (Auto) [place] # (Auto) Eos # (Auto) Baso # (Auto) Abs Immat Gran (auto) Absolute Neuts (auto) Absolute Nucleated RBC 0.020 H Nucleated RBC % (auto) 0.3 H Smear Path Review Absolute Retic Percent Retic Immature Retic Fraction Retic Hgb Equivalent PT 14.1 H INR 1.2 H Hold Blue Top Sodium 140 Potassium 4.1 Chloride 107 Carbon Dioxide 24 Anion Gap 13 BUN 10 Creatinine 0.78 Estim Creat Clear Calc 109.7 Estimated GFR > 60 Random Glucose Fasting Glucose 85 Estimat Average Glucose Hemoglobin A1c % Calcium 8.7 Iron TIBC % Saturation Unsat Iron Binding Ferritin Total Bilirubin Direct Bilirubin AST ALT Alkaline Phosphatase Lactate Dehydrogenase Troponin I High Sens Total Protein Albumin Vitamin B12 Folate Stool Occult Blood COVID-19 ([facility]) COVID-19 [employer] Com Blood Type Antibody Screen Crossmatch 01/30/21 01/30/21 07:24 07:24 WBC RBC Hgb Hct MCV MCH MCHC RDW Plt Count MPV Immature Gran % (Auto) Neut % (Auto) Lymph % (Auto) [place] % (Auto) Eos % (Auto) Baso % (Auto) Lymph # (Auto) [place] # (Auto) Eos # (Auto) Baso # (Auto) Abs Immat Gran (auto) Absolute Neuts (auto) Absolute Nucleated RBC Nucleated RBC % (auto) Smear Path Review Absolute Retic Percent Retic Immature Retic Fraction Retic Hgb Equivalent PT INR Hold Blue Top Sodium Potassium Chloride Carbon Dioxide Anion Gap BUN Creatinine Estim Creat Clear Calc Estimated GFR Random Glucose Fasting Glucose Estimat Average Glucose Hemoglobin A1c % Calcium Iron TIBC % Saturation Unsat Iron Binding Ferritin Total Bilirubin 0.8 Direct Bilirubin 0.2 AST 30 ALT 35 Alkaline Phosphatase 74 Lactate Dehydrogenase Troponin I High Sens Total Protein 6.8 Albumin 4.1 Vitamin B12 432 Folate 17.3 Stool Occult Blood COVID-19 ([facility]) COVID-19 Clin Com Blood Type Antibody Screen Crossmatch Airway Mallampati Class: III TM Dist: >3cm Neck ROM: Full Partial: Upper Heart: RRR Lungs: CTA Assessment and Plan Assessment Anesthesia Assessment: Anesthesia Plan Discussed and Chart Reviewed Final Anesthetic Review NPO: Yes ASA Class: II Final Preanesthetic Review: No Changes in Pt Med Stat and Consent Obtained/Reviewed Patient Risk: Intermediate Procedure Risk: Intermediate Anesthetic Plan Anesthetic Plan: MAC: Disposition: Standard PACU
--- NOTE | 2021-01-30 16:32 | P.PNIM_ITS ---
Subjective Subjective Date of Service: 01/30/21 Interval History: History obtained via chief of party, patient denies chest pain no shortness of breath lightheadedness or dizziness, and no acute issues overnight no GI bleed noted. ros General no headache, no dizziness ,no fever chills. CVS no chest pain, no palpitation. Respiratory no cough, no sob. Gastrointestinal no nausea no vomiting, no abdominal pain Physical Exam Vital Signs: Vital Signs: Last Vital Signs Temp 98.8 F 01/30/21 14:23 Pulse 81 01/30/21 14:23 Resp 18 01/30/21 14:23 BP 130/80 01/30/21 14:23 Pulse Ox 98 01/30/21 14:23 Body Mass Index 29.7 Gen: no acute distress Neck: supple Lungs: clear to auscultation bilaterally Heart: regular rate and rhythm, no murmurs Abd: soft, non-tender, bowel sounds audible, non-distended Ext: no edema Skin: No rash Neuro: alert and oriented x3, no focal findings Psych: appropriate affect Objective Data Current Medications Generic Name Dose Route Start Last Admin Trade Name Freq PRN Reason Stop Dose Admin Acetaminophen 650 mg 01/28/21 17:13 Acetaminophen 325 Mg Tablet PO Q6H PRN Pain, Mild (Pain Scale 1-3) Ondansetron HCl 4 mg 01/28/21 17:13 Ondansetron Hcl 4 Mg/2 Ml Vial IVPUSH Q8H PRN Nausea and Vomiting Sodium Chloride 3 ml 01/29/21 00:00 01/30/21 16:13 0.9 % Sodium Chloride Flush 3 Ml Syringe IVFLUSH Not Given QSHIFT [facility] Labs CBC & Chem 7: 01/30/21 07:24 01/30/21 07:24 Assessment and Plan (1) Chest pain: Status: Acute (2) Anemia: Status: Acute Assessment and Plan: 55 year-old M with no chronic conditions [prior admissions for pSBO and COVID-19 pneumonia] p/w chest pressure, exertional dyspnea, and lightheadendess admitted for severe iron deficiency anemia with Hb 5.3 # severe iron deficiency anemia - Hb responded appropriately to 3u pRBCs. Initial FOBT negative; patient underwent upper endoscopy and colonoscopy today EGD showed Small hiatal hernia, otherwise normal. Duodenum biopsied to R/O celiac disease Colonoscopy to the cecum and TI showed Diverticulosis in ascending colon and sigmoid colon. No bleeding. Small internal hemorrhoids, no cause of bleeding found, case discussed with Dr. Holt he recommend to discharge patient home on iron supplement and he will arrange for outpatient video capsule study. # chest pain - no recurrent episode of chest pain, was likely due to anemia; hs-Tn-I x2 negative Will discharge patient home for continued outpatient follow-up with PCP and Gastroenterology.
--- NOTE | 2021-01-30 16:47 | PM.OP ---
Brief Operative Note Date of Service: 01/30/21 Pre-op diagnosis: Anemia Post-op diagnosis: other (Hiatal hernia, Diverticulosis, Internal hemorrhoids) Procedure: EGD with biopsies, Colonoscopy to the cecum and TI Surgeon: Colin Holt Anesthesia: MAC Was an Gallery Director used for this Procedure?: No Estimated blood loss (mL): 3.0 Pathology: other (A. Descending duodenum) Condition: stable Disposition: PACU
--- NOTE | 2021-01-30 16:48 | PM.EVENT ---
Event Note Date of Service: 01/30/21 Event Note: GI-Full note dictated 1. EGD-Small hiatal hernia, otherwise normal. Duodenum biopsied to R/O celiac disease. 2. Colonoscopy to the cecum and TI-- Diverticulosis in ascending colon and sigmoid colon. No bleeding. Small internal hemorrhoids. No findings to account for his anemia. Rec: Advance diet, check path, and start Iron. He will need an outpatient small bowel video capsule study. He can go home today or tomorrow from my standpoint. I will arrange outpatient follow up. Thanks
[2021-01-30] MEDS: Ferrous Sulfate 324 MG TABLET.DR PO (17:30)
[2021-01-30] MEDS: 0.9 % Sodium Chloride Flush 3 ML SYRINGE IVFLUSH (17:31)
--- NOTE | 2021-01-30 18:16 | P.DS_ITS ---
DS: Providers Provider Date of Service: 01/30/21 Date of admission: 01/28/21 17:13 Primary care physician: Unknown Physician Consults: 01/28/21 17:13 Consult to Gastroenterology Routine Consulting [place] [facility] [place] [facility] Reason for consultation: severe anemia, FOBT- but never had scope DS: Diagnosis Discharge Diagnosis (1) Chest pain: Status: Acute (2) Anemia: Status: Acute DS: Medications Discharge Medications Home Medications: Previous Rx's Medication Instructions Recorded ferrous sulfate 324 mg PO BIDWM #60 tab 01/30/21 DS: Summary Hospital Course Hospital Course: History of presenting illness Chief Complaint: chest pressure/dyspnea/dizziness This is a 55-year-old male with no known chronic conditions who was hospitalized once in 2019 for 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 He presents to the emergency department now with a one-week history of nonradiating midsternal chest pressure that is dull in quality and worse with exertion. He also notes about 2 weeks of worsening dyspnea with exertion. He has also been feeling dizzy and lightheaded for approximately the past 4 weeks. He is on no chronic medications. In the ED, he was noted to be severely anemic with a hemoglobin of 5.3 and MCV of 65. FOBT was negative. He's never been told before that he is anemic; however I do note that his hemoglobin was 10.8 back in 2018 with MCV of 69; and then 9.5 back in 2019 with MCV of 68. He is not a vegetarian and he eats plenty of meat and beans and other iron rich foods. He denies any melena or hem atochezia but has not had age-appropriate colon cancer screening. He does not currently have a primary care physician. Hospital course 55 year-old M with no chronic conditions presented with chest pressure, exertional dyspnea, and lightheadendess workup showed severe anemia with hemoglobin 5.3, patient received 3 units of packed RBC and subsequently underwent EGD that showed Small hiatal hernia, otherwise normal. Duodenum biopsied to R/O celiac disease and Colonoscopy to the cecum that showed Diverticulosis in ascending colon and sigmoid colon. No bleeding. Small internal hemorrhoids, no cause of bleeding found, since patient has no active bleed tolerating diet he is being discharged home on iron supplements and has been recommended to have outpatient follow-up with Dr. Holt for video capsule study , it was felt the chest pressure was related to profound anemia, patient troponin were negative, had no EKG findings of ischemia patient has been recommended to return to hospital with any symptoms of chest pressure, shortness of breath, lightheadedness or dizziness. Time Spent with Patient Time attestation: Total time spent providing and/or coordinating discharge services: Discharge coordination time: Greater than 30 minutes Quality: Stroke Does the patient have a stroke diagnosis?: No Physical Exam Vital Signs: Vital Signs: Last Vital Signs Temp 97.6 F 01/30/21 16:48 Pulse 75 01/30/21 17:03 Resp 16 01/30/21 17:03 BP 108/58 L 01/30/21 17:03 Pulse Ox 97 01/30/21 17:03 Body Mass Index 29.7 Gen: no acute distress Neck: supple Lungs: clear to auscultation bilaterally Heart: regular rate and rhythm, no murmurs Abd: soft, non-tender, bowel sounds audible, non-distended Ext: no edema Skin: No rash Neuro: alert and oriented x3, no focal findings Psych: appropriate affect DS: Data Data Completed and Pending Pending studies at discharge: Pending at discharge 01/30/21 16:33 Surgical [PTH] Routine Labs on day of discharge: Laboratory Results - last 24 hr 01/28/21 01/30/21 01/30/21 14:34 07:24 07:24 WBC 7.1 RBC 4.04 L Hgb 8.6 L Hct 29.1 L MCV 72.0 L MCH 21.3 L MCHC 29.6 L RDW 25.5 H Plt Count 262 MPV Not Reportable Absolute Nucleated RBC 0.020 H Nucleated RBC % (auto) 0.3 H Smear Path Review SEE NOTE PT 14.1 H INR 1.2 H Sodium Potassium Chloride Carbon Dioxide Anion Gap BUN Creatinine Estim Creat Clear Calc Estimated GFR Fasting Glucose Calcium Total Bilirubin Direct Bilirubin AST ALT Alkaline Phosphatase Total Protein Albumin Vitamin B12 Folate 01/30/21 01/30/21 01/30/21 07:24 07:24 07:24 WBC RBC Hgb Hct MCV MCH MCHC RDW Plt Count MPV Absolute Nucleated RBC Nucleated RBC % (auto) Smear Path Review PT INR Sodium 140 Potassium 4.1 Chloride 107 Carbon Dioxide 24 Anion Gap 13 BUN 10 Creatinine 0.78 Estim Creat Clear Calc 109.7 Estimated GFR > 60 Fasting Glucose 85 Calcium 8.7 Total Bilirubin 0.8 Direct Bilirubin 0.2 AST 30 ALT 35 Alkaline Phosphatase 74 Total Protein 6.8 Albumin 4.1 Vitamin B12 432 Folate 17.3 Discharge Plan Discharge Patient Disposition: Home, Self-Care Discharge Diagnosis: Acute iron deficiency anemia Chest pain due to anemia Referrals: Physician,Unknown [Primary Care Provider] - 1 Week Discharge Medications: New ferrous sulfate 324 mg (65 mg iron) Tablet,Delayed Release (Dr/Ec) 324 mg PO BIDWM Qty: 60 RF: 0 Discharge Orders: Discharge Order (Routine); Ordered 01/30/21 Ordered By: Gayle Nowak Diet: advance to usual diet Activity on Discharge: As tolerated Stand Alone Forms: Patient Portal Discharge page Care Plan Goals: Iron deficiency anemia no source of GI bleed noted, will need further workup by Gastroenterology. Health Concerns: You have been diagnosed to have iron deficiency anemia take ferrous sulfate twice daily, if develops constipation take high-fiber diet and stool softners, return to check with shortness of breath chest pain or palpitation. Plan of Treatment: Outpatient follow-up with primary care physician and Gastroenterology Dr. Holt Assessment: As above
--- NOTE | 2021-01-30 23:29 | OP_ITS ---
SURGEON: Colin Holt MD INDICATIONS: The patient presents for evaluation of iron-deficiency anemia. Full consent has been obtained from him for this, including risks of bleeding and perforation. PREOPERATIVE DIAGNOSIS: Iron-deficiency anemia. POSTOPERATIVE DIAGNOSIS: PROCEDURE PERFORMED: Esophagogastroduodenoscopy with biopsies and colonoscopy to cecum and terminal ileum. ESTIMATED BLOOD LOSS: COMPLICATIONS: ANESTHESIA: Monitored anesthesia care. ASSISTANTS: SPECIMENS: POSTOPERATIVE DIAGNOSES: Iron-deficiency anemia, small hiatal hernia, rule out celiac disease, diverticulosis, small internal hemorrhoids. DESCRIPTION OF PROCEDURE: The patient was placed in the left lateral decubitus position. The Olympus video gastroscope was passed in the posterior oropharynx and upper esophagus under direct vision. The scope was passed slowly into the distal esophagus. The gastroesophageal junction appeared normal at 39 cm. There was no sign of any esophagitis nor Bautista's esophagus. There was a small hiatal hernia. The scope was advanced to pylorus and the duodenum was cannulated to the descending portion. The duodenum including the bulb appeared normal without mass or ulceration. Biopsies were obtained from the 2nd and 3rd portions of duodenum. The scope was withdrawn back in the stomach. The gastric antrum and body appeared normal with good peristalsis. The scope was retroflexed visualizing the proximal stomach carefully, which appeared normal, without any sign of mass or ulceration. The scope was straightened out and withdrawn back into the esophagus. The small hiatal hernia, gastric mucosa appeared normal, without any sign of gastritis nor erosions. The esophageal mucosa appeared normal. The scope was withdrawn from the patient. He was turned around for the colonoscopy. The digital rectal exam revealed no abnormalities. The Olympus video pediatric colonoscope was entered into the rectum and advanced easily to the cecum. Once in the cecum, I did identify normal-appearing cecal pouch with appendiceal orifice and a normal-appearing ileocecal valve. The terminal ileum was cannulated and appeared normal. The scope was withdrawn back in the colon. The entire cecum and ileocecal valve appeared normal. The scope was slowly withdrawn assessing all mucosal surfaces carefully. Preparation was excellent. I did not visualize any sign of polyps, colitis, nor angiodysplasia. There was a mild amount of diverticulosis in the ascending colon and mild amount of diverticulosis in the sigmoid colon. In the rectum, scope was retroflexed visualizing some small internal hemorrhoids, but no other pathology. The rectal mucosa appeared normal. The scope was straightened out and withdrawn from the patient. He tolerated both procedures well and was returned to the recovery area in stable condition. IMPRESSION: 1. Small hiatal hernia, otherwise normal upper endoscopy. Rule out celiac disease. 2. Diverticulosis. 3. Small internal hemorrhoids. PLAN: The results of biopsies will be checked. Assuming the biopsies do not show celiac disease as the cause of his anemia, I would then arrange for him to have an outpatient small bowel video capsule study. He seems very stable and could be discharged today if so desired. He should be sent home on iron supplement given the iron deficiency found during his workup here in the hospital. Of note, his B12 and folate levels were normal. This has been discussed with the patient and he is comfortable with this plan and is eager to go home. Again, my office will arrange for him to be seen for an outpatient video capsule study and then follow up thereafter. MD DAVID Skaggs/KIRSTIE / [phone]
[2021-02-02 00:36] LABS: Transglutaminase Ab IgG 3 U/mL; Transglutaminase IgA 1 U/mL
== END 2021-01-30 19:00 | disposition home or self-care (01) | DRG 812 ==
LOC: HO.ED 15:47 → HO.EDOVER 17:27 → HO.S3 19:52
PROVIDERS: Internal Medicine; Admitting Provider Family Medicine; Emergency Provider Emergency Medicine Emergency Medical Services; Visit Provider Hospitalist
PROC: 0DB98ZX Excision of Duodenum, Via Natural or Artificial Opening Endoscopic, Diagnostic (ICD-10-PCS; principal; 2021-01-30 14:00)
DX: D50.0 Iron deficiency anemia secondary to blood loss (chronic) (principal); K44.9 Diaphragmatic hernia without obstruction or gangrene; K64.8 Other hemorrhoids; K57.30 Diverticulosis of large intestine without perforation or abscess without bleeding; Z86.16 Personal history of COVID-19; Z20.822 Contact with and (suspected) exposure to COVID-19; Z79.899 Other long term (current) drug therapy
CPT/HCPCS: 36415; 71045; 80048; 80076; 82272; 82607; 82728; 82746; 83036; 83516; 83540; 83615; 84484; 85025; 85027; 85045; 85610; 86850; 86900; 86901; 86923; 87635; 88305; 93005; 99285; P9016

== ENCOUNTER 2022-12-15 21:03 | Emergency (ER) | payer OTHER, MEDICAID, SELFPAY ==
--- NOTE | ~2022-12-15 | XR_ITS ---
EXAMINATION: XR ELBOW, RIGHT CLINICAL INFORMATION: Acute traumatic right elbow pain. COMPARISON: None available. TECHNIQUE: Three views of the right elbow. FINDINGS: Prominent enthesopathic spur at the triceps tendon insertion on the olecranon. No fracture or malalignment. No joint effusion. Joint spaces well-preserved. Bone mineralization is normal. Soft tissues are unremarkable. XR/XR elbow RT 2V IMPRESSION: No acute fracture or malalignment at the right elbow. No effusion.
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
--- NOTE | ~2022-12-15 | XR_ITS ---
EXAMINATION: XR CHEST, 2 VIEWS CLINICAL INFORMATION: Acute traumatic chest pain COMPARISON: 01/28/2021 TECHNIQUE: PA and lateral views of the chest were obtained. FINDINGS: No consolidation, pneumothorax, or pleural effusion. Cardiac and mediastinal contours are normal. Pulmonary vasculature is unremarkable. Trachea is midline. 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 No acute fractures. Bone mineralization is normal. XR/XR chest 2V IMPRESSION: No acute cardiopulmonary findings.
[2022-12-15 21:13] VITALS: BP 158/109; PULSE 78; RESP 17; TEMP 36.6; O2SAT 96; BMI 29.0
[2022-12-15 22:00] VITALS: BP 140/88; PULSE 69; RESP 16; TEMP 36.8; O2SAT 94
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
--- NOTE | 2022-12-15 23:01 | PC.NURSE ---
This consumer loan underwriter assumed care of this Pt at 2300. Pt is c-shanthi. Pt on the way to CT for scans.
[2022-12-15] MEDS: Cyclobenzaprine HCl 10 MG TABLET PO (23:34)
[2022-12-15] MEDS: Acetaminophen 325 MG TABLET 975 MG PO (23:35)
[2022-12-15 23:39] VITALS: BP 126/77; PULSE 70; RESP 16; O2SAT 96
--- NOTE | 2022-12-15 23:58 | MHC.EDTECH ---
This Tech assumed care of patient at 2300,Patient urinated 300cc in urinal patient has c-collar in place,awaiting results at this time.Patient is resting comfortable at this time. Call dawkins in reach
== END 2022-12-16 01:44 | disposition home or self-care (01) ==
PROVIDERS: Emergency Provider Emergency Medicine
DX: S39.012A Strain of muscle, fascia and tendon of lower back, initial encounter (principal); S06.9X9A Unspecified intracranial injury with loss of consciousness of unspecified duration, initial encounter; G89.11 Acute pain due to trauma; R07.89 Other chest pain; M25.521 Pain in right elbow; V43.52XA Car driver injured in collision with other type car in traffic accident, initial encounter; Y93.89 Activity, other specified; Y92.414 Local residential or business street as the place of occurrence of the external cause; Y99.9 Unspecified external cause status
CPT/HCPCS: 70450; 71046; 72100; 72125; 73070; 99284